=== PATIENT | female | born 1955 | race Caucasian/White ===

== ENCOUNTER 2021-01-10 07:15 | Outpatient (CLI) | payer MEDICARE, OTHER | END 2021-01-10 07:16 | disposition home or self-care (01) | LOC: LAB.S 07:15 | PROVIDERS: ATTEND Registered Nurse | DX: Z13.0 Encounter for screening for diseases of the blood and blood-forming organs and certain disorders involving the immune mechanism (principal); Z13.228 Encounter for screening for other metabolic disorders; Z13.29 Encounter for screening for other suspected endocrine disorder | CPT/HCPCS: 36415; 80053; 80061; 83721; 84443; 85025 ==

== ENCOUNTER 2021-06-20 07:43 | Outpatient (CLI) | payer MEDICARE, OTHER ==
--- NOTE | 2021-06-21 12:14 | Mammography Report ---
BILATERAL DIGITAL SCREENING MAMMOGRAM 3D/2D: 06/20/2021 CLINICAL: Family history of breast cancer. Comparison is made to exams dated: 06/06/2020 mammogram, 06/03/2019 mammogram, 05/28/2018 mammogram, and 05/23/2017 mammogram - [facility]. There are scattered fibroglandular elements in both breasts. No significant masses, calcifications, or other findings are seen in either breast. There has been no significant interval change. IMPRESSION: NEGATIVE There is no mammographic evidence of malignancy. A 1 year screening mammogram is recommended. This exam was interpreted at Station ID: [id number]. NOTE: For mammograms, a report in lay terms will be sent to the patient. Approximately 15% of breast malignancies will not be visualized mammographically. In the management of a palpable breast mass, a negative mammogram must not discourage biopsy of a clinically suspicious lesion. Electronically Signed By: Wyatt Redding M.D. aty/penrad:06/20/2021 08:43:58 ACR BI-RADS Category 1: Negative 3341F PARENCHYMAL PATTERN: (A) - The breast(s) demonstrate(s) scattered fibroglandular densities. BI-RADS CATEGORY: (1) - 1 RECOMMENDATION: (ANNUAL) - Recommend routine annual screening mammography. [id number] 1 year screening LATERALITY: (B)
== END 2021-06-20 07:44 | disposition home or self-care (01) ==
LOC: DI.S 07:43
DX: Z12.31 Encounter for screening mammogram for malignant neoplasm of breast (principal); Z80.3 Family history of malignant neoplasm of breast

== ENCOUNTER 2022-06-21 07:26 | Outpatient (CLI) | payer MEDICARE, OTHER ==
--- NOTE | 2022-06-21 18:37 | Ultrasound Report ---
PROCEDURE: Pelvic w/Transvaginal, ultrasound INDICATIONS: UTERINE FIBROIDS TECHNIQUE: Real-time scanning was performed of the pelvic organs, with image documentation. Additional endovagi nal scanning was necessary due to incomplete visualization of the adnexal and endometrial structures by transabdominal scanning. COMPARISON: None. FINDINGS: Uterus: Uterus is anteverted and normal in size at 7.6 x 5.1 x 5.2 cm. The myometrium is heterogeno us. Several, at least 3 uterine fibroids noted. Largest is in the left anterior subserosal uterus willie suring 3.1 x 2.6 x 4.1 cm. Additional 2.6 x 2.4 cm subserosal fibroid noted adjacent to the cervix, and there is a 2.4 x 2.3 cm subserosal nodule in the right lower uterine segment. The endometrium willie sures 2.1 mm in combined thickness. Ovaries: The right ovary measures 2.4 x 1.5 x 1.0 cm, with a calculated ovarian volume of 9 cc. The left ovary measures 2.3 x 1.0 x 1.1 cm, with a calculated ovarian volume of 1.3 cc. Left ovarian com plex exophytic cyst measures 2.6 x 1.7 x 2.2, and there is a 6 mm mural nodule associated. Less than 12 follicles can be seen in each ovary. No adnexal masses are seen. Other: No pathologic free abdominal or pelvic fluid. IMPRESSION: 1. Complex left ovarian cyst with mural nodule. Consider further evaluation with MRI. 2. Several uterine fibroids present, largest measures 4.1 cm Reviewed by: Sincere Neal MD on 06/21/2022 5:35 PM JOSE Approved by: Sincere Neal MD on 06/21/2022 5:35 PM AKDT Station ID: [id number]
== END 2022-06-21 07:27 | disposition home or self-care (01) ==
LOC: DI 07:26
PROVIDERS: ATTEND Nurse Practitioner
DX: N83.292 Other ovarian cyst, left side (principal); D25.2 Subserosal leiomyoma of uterus

== ENCOUNTER 2022-07-03 07:54 | Outpatient (CLI) | payer MEDICARE, OTHER ==
--- NOTE | 2022-07-05 12:53 | Mammography Report ---
BILATERAL DIGITAL SCREENING MAMMOGRAM 3D/2D: 07/03/2022 CLINICAL: Routine screening. Family history of breast cancer. Comparison is made to exams dated: 06/20/2021 mammogram - [facility], 06/06/2020 [facility], and 06/03/2019 mammogram - [facility]. There are scattered areas of fibroglandular density in both breasts (category b / 25%-50% glandular t issue). There are benign calcifications in both breasts. No significant masses, calcifications, or other findings are seen in either breast. There has been no significant interval change. IMPRESSION: BENIGN There is no mammographic evidence of malignancy. A 1 year screening mammogram is recommended. Based on the Tyrer Cuzick model (a risk assessment model) the patients lifetime risk is 6.2% and her 10 year risk is 3.7%. According to the ACR, ACS, and NCCN guidelines, an annual breast MRI exam isac g with mammogram is recommended if the patients lifetime risk is 20% or greater. This exam was interpreted at Station ID: [id number]. NOTE: For mammograms, a report in lay terms will be sent to the patient. Approximately 15% of breast malignancies will not be visualized mammographically. In the management of a palpable breast mass, a negative mammogram must not discourage biopsy of a clinically suspicious lesion. Electronically Signed By: Wyatt longoria/mahesh:07/04/2022 11:06:01 ACR BI-RADS Category 2: Benign Finding(s) 3342F PARENCHYMAL PATTERN: (A) - The breast(s) demonstrate(s) scattered fibroglandular densities. BI-RADS CATEGORY: (2) - 2 RECOMMENDATION: (ANNUAL) - Recommend routine annual screening mammography. [id number] 1 year screening LATERALITY: (B)
== END 2022-07-03 07:55 | disposition home or self-care (01) ==
LOC: DI.S 07:54
DX: Z12.31 Encounter for screening mammogram for malignant neoplasm of breast (principal); Z80.3 Family history of malignant neoplasm of breast

== ENCOUNTER 2022-07-25 08:39 | Outpatient (CLI) | payer MEDICARE, OTHER ==
[~2022-07-25 08:39] MED LIST: GADOBUTROL 7.5 MMOL/7.5 ML VIAL ONE
[2022-07-25 10:05] LABS: CREATININE 0.8 mg/dL (0.4-1.0)
[2022-07-25] MEDS ORDERED: GADOBUTROL 7.5 MMOL/7.5 ML VIAL IVP ONE (13:21)
--- NOTE | 2022-07-25 13:27 | MRI Report ---
PROCEDURE: Pelvis W/WO INDICATIONS: OVARIAN CYST, ABN US CONTRAST: IV CONTRAST: Gadavist ml: 7.0 TECHNIQUE: Coronal ultra fast SE, sagittal breath-hold T2 FSE; axial T1 FSE with and without fat saturation thro ugh the pelvis. Optional long- and short-axis uterine nonbreath-hold T2 FSE through the uterus. Sag ittal or axial dynamic ultra fast GE during administration of contrast. Post-contrast axial or coron al ultra fast GE / 2-D spoiled GE with fat saturation from the iliac crests to the symphysis. Option al diffusion weighted imaging and ADC may be performed. COMPARISON: Pelvic ultrasound 06/21/2022. FINDINGS: Image quality: Excellent. Uterus: Retroverted uterus. Multiple uterine fibroids (approximately 7). For example: Left fundal exo phytic fibroid measuring 3.2 cm. Fundal intramural measuring 4.1 cm. Endometrium is normal in thickne ss. Junctional zone is normal in thickness at 12 mm or less. Adnexa: Small cyst in the left pelvis measuring 2.1 x 1.7 cm, (). This cyst demonstrates intrins ic T1 hyperintense signal which persists on the fat saturated sequences. No enhancement and T2 isoint ense signal. There appears to be a small mural nodule measuring is 0.4 cm, (7/15). This finding appea rs separate from the left ovary. Small left ovarian follicle, (7/13). Small right ovarian follicle, (7/21). Urinary system: Bladder wall is normal in thickness. Distal ureters are non distended. Urethra luis m ears normal in morphology. Nodes and vessels: No pelvic or inguinal adenopathy by size criteria. Iliac vessels are normal in s ize. Bowel and peritoneum: No pathologic free pelvic fluid. Inferior colon and small bowel loops are nor mal in caliber. Soft tissues: No inguinal hernias. No findings of pelvic floor incompetence in the absence of provo cation. Bones: Marrow demonstrates normal overall signal. Bilateral hip arthroplasties. IMPRESSION: 1. Left posterior pelvis cyst measuring 2.1 cm. Intrinsic T1 hyperintense signal consistent with prot einaceous or hemorrhagic debris. Small mural nodule. No enhancement appreciated. Benign and malignant etiologies remain in the differential diagnosis. Cystadenofibroma could have this appearance. 2. Multiple uterine fibroids. 3. No endometrial thickening. Reviewed by: Lazaro Jorgensen MD on 07/25/2022 1:26 PM PDT Approved by: Lazaro Jorgensen MD on 07/25/2022 1:26 PM PDT Station ID: [id number]
== END 2022-07-25 08:40 | disposition home or self-care (01) ==
LOC: LAB 08:39
PROVIDERS: ATTEND Nurse Practitioner
DX: D25.1 Intramural leiomyoma of uterus (principal); R93.89 Abnormal findings on diagnostic imaging of other specified body structures
CPT/HCPCS: 36415; 72197; 82565; A9585

== ENCOUNTER 2022-08-06 13:06 | Outpatient (CLI) | payer MEDICARE, OTHER | END 2022-08-06 13:07 | disposition home or self-care (01) | LOC: LAB.S 13:06 | PROVIDERS: ATTEND Obstetrics & Gynecology | DX: R19.09 Other intra-abdominal and pelvic swelling, mass and lump (principal) | CPT/HCPCS: 81599 ==

== ENCOUNTER 2022-09-03 08:05 | Outpatient (CLI) | payer MEDICARE, OTHER ==
[2022-09-03 08:26] LABS: BASOPHILS % (AUTO) 0.7 %; EOSINOPHILS # (AUTO) 0.1 10^3/uL (0.0-0.7); EOSINOPHILS % (AUTO) 1.5 %; HCT - HEMATOCRIT 43.1 % (37.0-47.0); HGB - HEMOGLOBIN 13.5 g/dL (12.0-16.0); LYMPHOCYTES # (AUTO) 1.6 10^3/uL (1.5-3.5); LYMPHOCYTES % (AUTO) 25.3 %; MEAN CORPUSCULAR HEMOGLOBIN 29.2 pg (27.0-31.0); MEAN CORPUSCULAR HGB CONC 31.3 g/dL (32.0-36.0); MEAN CORPUSCULAR VOLUME 93.3 fL (81.0-99.0); MEAN PLATELET VOLUME 10.6 fL (7.9-10.8); MONOCYTES # (AUTO) 0.4 10^3/uL (0.0-1.0); NEUTROPHILS % (AUTO) 65.2 %; PLT - PLATELET COUNT 259 10^3/uL (130-450); RED BLOOD COUNT 4.62 10^6/uL (4.20-5.40); RED CELL DISTRIBUTION WIDTH 12.4 % (12.0-15.0); WHITE BLOOD COUNT 6.1 x10^3/uL (4.8-10.8)
== END 2022-09-03 08:06 | disposition home or self-care (01) ==
LOC: LAB 08:05
PROVIDERS: ATTEND Obstetrics & Gynecology
DX: Z01.812 Encounter for preprocedural laboratory examination (principal); R19.09 Other intra-abdominal and pelvic swelling, mass and lump
CPT/HCPCS: 36415; 85025; 86850; 86900; 86901

== ENCOUNTER 2022-09-04 09:11 | Day surgery (SDC) | payer MEDICARE, OTHER ==
[2022-09-04] MEDS ORDERED: LACTATED RINGERS 1,000 ML IV ONE ×2 (10:01→12:22)
--- NOTE | 2022-09-04 10:07 | HISTORY & PHYSICAL EXAMINATION ---
History and Physical - History and Physical HPI: Patient is a 67-year-old postmenopausal female presenting today for laparoscopic bilateral salpingo-oophorectomy and cystectomy. She was seen in the ED several months ago and was diagnosed with diverticulitis, but until he had a suspicious looking cyst on her left adnexa with a nodule. While this did ultimately end up appearing separate from the ovary on MRI, she had a normal CA125 and unremarkable [place]. Due to the mural nodule, we discussed surgical assessment of the cyst. She would also like the ovaries removed as we are performing surgery and [place] in her abdomen anyway. All other symptoms reviewed and were negative except per HPI. PMH Glaucoma Lichen sclerosus Arthritis Varicose veins Uterine fibroids HSV-2 PSH Left and right hip replacement Phlebectomy Diagnostic laparoscopy SH Denies tobacco, alcohol, drugs Family History Mother: Breast cancer, allergies Brother: Diabetes Sister: Allergies Allergies No known drug allergies Medications Estradiol cream Edelmira Prost eyedrops Protopic eyedrops Tacrolimus ointment Physical exam: General: Alert, oriented, no acute distress Head: Normal cephalic atraumatic Eyes: PERRLA, extraocular motions intact. Respiratory: Normal rate of respiration. No accessory muscle use, normal respiratory effort. Cardiovascular: Regular rate and rhythm Abdomen: Nontender, nondistended. Extremities: Normal range of motion, no cords palpated. Good distal pulese. Neuro: Oriented x3. Normal movements Psych: Appropriate mood and affect. Normal judgment and insight Plan 67-year-old postmenopausal female with adnexal cyst 1. Adnexal cyst: -Proceed with diagnostic operative laparoscopy with left adnexal cystectomy as well as bilateral salpingo-oophorectomy. Discussed the risks and benefits with patient regarding surgical risk, bleeding, infection, damage to other organs. Discussed that while this appears benign, final pathology will take proximally 1 week. We will discuss final results at postoperative visit. 2. Uterine fibroids: -Declines hysterectomy -2 to 4 cm in diameter, but not bothering patient.
[2022-09-04] MEDS ORDERED: PROPOFOL 200 MG/20 ML VIAL IVP ONE (10:18)
[2022-09-04] MEDS ORDERED: fentaNYL 100 MCG/2 ML VIAL ONE (10:18)
[2022-09-04] MEDS ORDERED: MIDAZOLAM 2 MG/2 ML VIAL ONE (10:18)
[2022-09-04] MEDS ORDERED: LIDOCAINE-PF 2% 10 ML AMP SUBQ ONE (10:18)
[2022-09-04] MEDS ORDERED: ROCURONIUM 50 MG/5 ML VIAL ONE (10:19)
[2022-09-04] MEDS ORDERED: LIDOCAINE MPF 2%-EPI 1:200000 20 ML VIAL ONE (10:24)
[2022-09-04] MEDS ORDERED: BUPIVACAINE 0.5% PF 30 ML VIAL ONE (10:24)
--- NOTE | 2022-09-04 10:30 | ANESTHESIA ---
Pre-Anesthesia VS, & Labs - Diagnosis ADNEXAL CYST - Procedure LAPAROSCOPIC SALPINGO-OOPHORECTOMY Vital Signs: Temp Pulse Resp BP Pulse Ox O2 Flow Rate 37.1 C 75 18 145/69 H 100 09/04/22 09:26 09/04/22 09:26 09/04/22 09:26 09/04/22 09:26 09/04/22 09:26 Height: 5 ft 6 in Weight (kg): 69 kg Body Mass Index: 24.5 BMI Classification: Normal - NPO >8 hours - Is Patient ?: No Home Medications and Allergies Home Medications: Ambulatory Orders Acetaminophen [Tylenol] 650 mg PO Q6H PRN 08/30/22 Ascorbic Acid [Vitamin C] 500 mg PO DAILY 08/30/22 Cholecalciferol [Vitamin D3] 25 mcg PO DAILY 08/30/22 Latanoprost/Pf [Latanoprost 0.005% Eye Drop] 1 drops EACHEYE QPM 08/30/22 Protopic 0.1% 1 applic TOP PRN PRN 08/30/22 Acetaminophen [Tylenol] 650 mg PO Q6H PRN 08/30/22 Ascorbic Acid [Vitamin C] 500 mg PO DAILY 08/30/22 Cholecalciferol [Vitamin D3] 25 mcg PO DAILY 08/30/22 Latanoprost/Pf [Latanoprost 0.005% Eye Drop] 1 drops EACHEYE QPM 08/30/22 Protopic 0.1% 1 applic TOP PRN PRN 08/30/22 Allergies/Adverse Reactions: Allergies Allergy/AdvReac Type Severity Reaction Status Date / Time Opioids - Morphine Analogues AdvReac Nausea Verified 08/30/22 13:03 Anes History & Medical History - Anesthetic History Anesthesia Complications: reports: Post-Operative Nausea/Vomiting, Opioid sensitivity Family history of Anesthesia Complications: Denies Family history of Malignant Hyperthermia: Denies - Medical History Cardiovascular: reports: None Pulmonary: reports: None Gastrointestinal: reports: Diverticulitis Urinary: reports: None Neuro: reports: None Musculoskeletal: reports: Osteoarthritis Endocrine/Autoimmune: reports: None Skin: reports: Psoriasis Smoking Status: Never smoker Psychosocial: reports: No issues indicated History of Cancer?: No - Surgical History General: reports: Colonoscopy Eyes Ears Nose Throat (EENT): reports: Tonsil/Adenoidectomy Gynecologic: reports: Other Orthopedic: reports: Hip replacement Exam General: Alert, Oriented x3, Cooperative, No acute distress Mouth Openin Fingerbreadth Neck Mobility: Normal Mallampati classification: II Thyromental Distance: 4-6 cm Mental/Cognitive Status: Alert/Oriented X3, Normal for patient Cognitive Status: Within normal limits Plan Anesthesia Type: General Consent for Procedure(s) Verified and Reviewed: Yes Code Status: Attempt Resuscitation ASA classification: 2-Mild systemic disease Is this case an emergency?: No
[2022-09-04] MEDS ORDERED: ePHEDrine 50 MG/ML VIAL IVP ONE (10:54)
[2022-09-04] MEDS ORDERED: LIDOCAINE 2%-EPI 1:100000 20 ML MDV SUBQ ONE ×2 (11:16)
[2022-09-04] MEDS ORDERED: BUPIVACAINE 0.5% PF 30 ML VIAL INFIL ONE ×2 (11:17)
[2022-09-04] MEDS ORDERED: ACETAMINOPHEN 1,000 MG/100 ML 1,000 MG/100 ML BAG IV ONE (11:20)
[2022-09-04] MEDS ORDERED: ONDANSETRON 4 MG/2 ML VIAL ONE ×2 (11:24→12:39)
[2022-09-04] MEDS ORDERED: DEXAMETHASONE 4 MG/ML VIAL ONE (11:24)
[2022-09-04] MEDS ORDERED: NALOXONE 0.4 MG/ML VIAL IVP PRN (12:07)
[2022-09-04] MEDS ORDERED: HYDROmorphone 0.5 MG/0.5 ML SYRINGE IVP PRN (12:07)
[2022-09-04] MEDS ORDERED: ePHEDrine 50 MG/ML VIAL IVP PRN (12:07)
[2022-09-04] MEDS ORDERED: ATROPINE ABBOJECT 1 MG/10 ML SYRINGE IVP PRN (12:07)
[2022-09-04] MEDS ORDERED: ONDANSETRON 4 MG/2 ML VIAL IVP PRN (12:07)
[2022-09-04] MEDS ORDERED: fentaNYL 100 MCG/2 ML VIAL IVP PRN (12:07)
[2022-09-04] MEDS ORDERED: METOCLOPRAMIDE 10 MG/2 ML VIAL IVP PRN (12:07)
[2022-09-04] MEDS ORDERED: KETOROLAC 30 MG/ML VIAL IVP PRN (12:11)
[2022-09-04] MEDS ORDERED: traMADol 50 MG TABLET PO PRN (12:11)
--- NOTE | 2022-09-04 12:21 | OPERATIVE REPORT ---
Operative Report - General Procedure Date: 09/04/22 Planned Procedure: Laparoscopic bilateral salpingo-oophorectomy, left adnexal cystectomy Pre-Op Diagnosis: Left adnexal cyst Procedure Performed: Laparoscopic bilateral salpingo-oophorectomy, left adnexal cystectomy Post Op Diagnosis: Left adnexal cyst - Procedure Note Primary Surgeon: Shmuel Smith MD Secondary Surgeon: Maci Ramires DO, Krista Burckhardt, ARNP Anesthesia Provider: Jonathan Veras CRNA Anesthesia Technique: General ET tube Pathology: Left adnexal cyst, bilateral fallopian tubes and ovaries IV Fluids (mL): 500 Estimated Blood Loss (mL): 20 Urine Output (mL): 100 Complications: None - Other Other Information/Narrative: Prior to surgery, we discussed the risk, benefits, alternatives of surgery, including infection, damage to other organs, bleeding. We discussed damage to other organs including dissecting the cyst off the pelvis. Damage to uterus and surrounding organs. Patient was taken to the OR and placed in the dorsal lithotomy position using Yellofin stirrups after adequate anesthesia was obtained. Patient was prepped and draped in the usual fashion. A bivalve speculum was used to visualize the cervix and a uterine manipulator was placed. 2 mL local anesthesia was used below the umbilicus. An 11 blade scalpel was used to incise the skin. Direct visual entry was used to place the infraumbilical trocar. Upon entering the peritoneal cavity, low flow was used to ensure appropriate positioning. Upon visualization of the abdominal cavity, high flow was then initiated. 2 additional trocars was placed under visualization in a similar fashion in the right and left lower quadrants. Numerous adhesions were seen in the pelvis, lik gala from her diverticulitis. The right lower quadrant adhesions were taken down from the sidewall. Adhesions were also used to separate the bowel from the pelvic organs. The course of the ureters was identified. The left lower quadrant cyst was noted, less than 1 cm from the ovary measuring approximately 1.5 cm. It was dark black to purple, and it appeared hemorrhagic or like an endometrioma. The cyst was from the sidewall using traction and EndoShears. A small am this was removed from the ount of serous fluid leaked from the cyst. This was removed from the pelvis through the port site. After visualization of the left fallopian tube and ovary, it was elevated with a blunt grasper. The IP ligament was grasped with the LigaSure device and was coagulated and cut. This was followed up the mesosalpinx following the tube to the level of the cornua and the tube and ovary were together. Attention was then turned to the right side which was similarly removed. The 5 mm left lower quadrant port was then exchanged for a 11 mm port and Endo Catch bag was placed in the abdomen and removed the 2 remaining specimens. The Suraj-Zelda device was then used with an 0 Vicryl suture to close the 11 mm port site. The abdomen was reviewed for hemostasis, and a healthy-appearing liver was noted. The trocars were then removed, and abdomen was evacuated of gas. The trocar sites were then closed with a 4-0 Monocryl in a sub-cuticular fashion and covered with Dermabond. Patient was taken to the PACU in stable condition. I appreciate the assistance of Maci Ramires DO during this procedure, and the assistance in retraction, visualization, dissection, and overall assistance during the case were instrumental to the patient's wellbeing.
--- NOTE | 2022-09-04 12:41 | ANESTHESIA POST OP EVALUATION ---
Anesthesia Post Eval - Post Anesthesia Eval Vitals: Last Vital Signs Temp 36.5 C 09/04/22 12:37 Pulse 65 09/04/22 12:37 Resp 16 09/04/22 12:37 BP 126/59 L 09/04/22 12:37 Pulse Ox 100 09/04/22 12:37 O2 Flow Rate CV Function Including HR & BP: Stable Pain Control: Satisfactory Nausea & Vomiting: Negative Mental Status: Baseline Respiratory Status: Airway Patent Hydration Status: Satisfactory Anesthesia Complications: None
[2022-09-04] MEDS ORDERED: KETOROLAC 15 MG/ML VIAL ONE (12:51)
[2022-09-04] MEDS ORDERED: LACTATED RINGERS 1,000 ML IV SCH (13:00)
[2022-09-04 14:50] VITALS: BP 114/74
== END 2022-09-04 09:12 | disposition home or self-care (01) ==
LOC: SDS 09:11
PROVIDERS: ATTEND Obstetrics & Gynecology
PROC: 0UT24ZZ Resection of Bilateral Ovaries, Percutaneous Endoscopic Approach (ICD-10-PCS; principal; 2022-09-04 10:30)
PROC: 0UT74ZZ Resection of Bilateral Fallopian Tubes, Percutaneous Endoscopic Approach (ICD-10-PCS; 2022-09-04 10:30)
DX: N83.8 Other noninflammatory disorders of ovary, fallopian tube and broad ligament (principal); D25.9 Leiomyoma of uterus, unspecified; Z78.0 Asymptomatic menopausal state
CPT/HCPCS: 58661; 86900; 86901; J0131; J7120

== ENCOUNTER 2023-05-03 09:32 | Outpatient (CLI) | payer MEDICARE, OTHER ==
--- NOTE | 2023-05-03 12:01 | DEXA Report ---
PROCEDURE: Dexa Spine and/or Hip INDICATIONS: POST MENOPAUSAL TECHNIQUE: Dual energy x-ray absorptiometry (DXA) was performed on a WellFX System. Regions measur ed are the AP Spine, femoral neck, and if needed forearm. COMPARISON: None FINDINGS: Lumbar Spine: Bone Mineral Density 1.223 g/cm/cm,T score 0.4. Normal Left Forearm: Bone Mineral Density 0.715 g/cm/cm, T score -1.8. Osteopenia (T score greater or equal to -1.0: NORMAL) (T score from -1.1 to -2.4: OSTEOPENIA) (T score less than or equal to -2.5 to: OSTEOPOROSIS) Impression: By WHO criteria, this patient has low bone density (osteopenia). Patients with diagnosis of osteoporosis or osteopenia should have regular bone mineral density assess ment. For those eligible for Medicare, routine testing is allowed once every 2 years. Testing frequ ency can be increased for patients who have rapidly progressing disease or for those who are receivin g medical therapy to restore bone mass. Reviewed by: Yasmine Carrington MD on 05/03/2023 10:59 AM JOSE Approved by: Yasmine Carrington MD on 05/03/2023 10:59 AM JOSE Station ID: [id number]
== END 2023-05-03 09:33 | disposition home or self-care (01) ==
LOC: DI 09:32
PROVIDERS: ATTEND Registered Nurse
DX: Z78.0 Asymptomatic menopausal state (principal); M85.88 Other specified disorders of bone density and structure, other site

== ENCOUNTER 2023-07-04 07:22 | Outpatient (CLI) | payer MEDICARE, OTHER ==
--- NOTE | 2023-07-04 11:21 | Mammography Report ---
BILATERAL DIGITAL SCREENING MAMMOGRAM 3D/2D: 07/04/2023 CLINICAL: Routine screening. Family history of breast cancer. Comparison is made to exams dated: 07/03/2022 mammogram, 06/20/2021 mammogram - [facility], 06/06/2020 mammogram, and 06/03/2019 mammogram - [facility]. There are scattered areas of fibroglandular density in both breasts (category b / 25%-50% glandular t issue). There are stable benign calcifications in both breasts. No significant masses, calcifications, or other findings are seen in either breast. There has been no significant interval change. IMPRESSION: BENIGN There is no mammographic evidence of malignancy. A 1 year screening mammogram is recommended. Based on the Tyrer Cuzick model (a risk assessment model) the patients lifetime risk is 5.9% and her 10 year risk is 3.7%. According to the ACR, ACS, and NCCN guidelines, an annual breast MRI exam isac g with mammogram is recommended if the patients lifetime risk is 20% or greater. This exam was interpreted at Station ID: [id number]. NOTE: For mammograms, a report in lay terms will be sent to the patient. Approximately 15% of breast malignancies will not be visualized mammographically. In the management of a palpable breast mass, a negative mammogram must not discourage biopsy of a clinically suspicious lesion. Electronically Signed By: Sj dominguez/mahesh:07/04/2023 10:07:24 letter sent: No_Letter ACR BI-RADS Category 2: Benign Finding(s) 3342F PARENCHYMAL PATTERN: (A) - The breast(s) demonstrate(s) scattered fibroglandular densities. BI-RADS CATEGORY: (2) - 2 Mammogram [id number] 1 year screening LATERALITY: (B)
== END 2023-07-04 07:23 | disposition home or self-care (01) ==
LOC: DI.S 07:22
DX: Z12.31 Encounter for screening mammogram for malignant neoplasm of breast (principal); Z80.3 Family history of malignant neoplasm of breast

== ENCOUNTER 2023-10-08 08:00 | Outpatient (CLI) | payer MEDICARE, OTHER ==
--- NOTE | 2023-10-08 13:23 | XRAY Report ---
PROCEDURE: Knee 4 View RT INDICATIONS: RIGHT KNEE PAIN TECHNIQUE: 4 views of the knee(s) were acquired. COMPARISON: None. FINDINGS: Bones: Mild to moderate degenerative changes, with joint space narrowing more prominent in the latera l compartment. On sunrise view, bone fragment is seen adjacent to the lateral facet. No acute displac ed fracture. No dislocation. Partially seen mild degenerative changes also seen in the left knee. Soft tissues: No suspicious calcifications. Small joint effusion is suspected. IMPRESSION: Mild to moderate degenerative changes, with joint space narrowing more pronounced in the lateral comp artment. Mild degenerative changes also seen in the partially visualized left knee. Small joint effus ion. Age-indeterminate small bone fragment adjacent to the lateral patellar facet. If there is high concern for further derangement, consider MRI evaluation. Reviewed by: Royal Whitmore MD on 10/08/2023 1:21 PM PST Approved by: Royal Whitmore MD on 10/08/2023 1:21 PM PST Station ID: [id number]
== END 2023-10-08 23:59 | disposition home or self-care (01) ==
LOC: DI.WOS 08:00
PROVIDERS: ATTEND Orthopaedic Surgery
DX: M17.11 Unilateral primary osteoarthritis, right knee (principal); M23.41 Loose body in knee, right knee

== ENCOUNTER 2024-07-07 07:49 | Outpatient (CLI) | payer MEDICARE, OTHER ==
--- NOTE | 2024-07-08 15:30 | Mammography Report ---
BILATERAL DIGITAL SCREENING MAMMOGRAM 3D/2D: 07/07/2024 CLINICAL: Routine screening. Family history of breast cancer. Comparison is made to exams dated: 07/04/2023 mammogram, 07/03/2022 mammogram, and 06/20/2021 mammogram - [facility]. There are scattered areas of fibroglandular density (category b / 25%-50% glandular tissue). There are stable benign calcifications in both breasts. No significant masses, calcifications, or other findings are seen in either breast. There has been no significant interval change. IMPRESSION: BENIGN There is no mammographic evidence of malignancy. A 1 year screening mammogram is recommended. Based on the Tyrer Cuzick model (a risk assessment model) the patient's lifetime risk is 5.6% and her 10 year risk is 3.8%. According to the ACR, ACS, and NCCN guidelines, an annual breast MRI exam isac g with mammogram is recommended if the patient's lifetime risk is 20% or greater. This exam was interpreted at Station ID: [id number]. NOTE: For mammograms, a report in lay terms will be sent to the patient. Approximately 15% of breast malignancies will not be visualized mammographically. In the management of a palpable breast mass, a negative mammogram must not discourage biopsy of a clinically suspicious lesion. Electronically Signed By: Valdez nagel/mahesh:07/07/2024 13:03:53 ACR BI-RADS Category 2: Benign 3342F PARENCHYMAL PATTERN: (A) - The breast(s) demonstrate(s) scattered fibroglandular densities. BI-RADS CATEGORY: (2) - 2 RECOMMENDATION: (ANNUAL) - Recommend routine annual screening mammography. [id number] 1 year screening LATERALITY: (B)
== END 2024-07-07 07:50 | disposition home or self-care (01) ==
LOC: DI.S 07:49
DX: Z12.31 Encounter for screening mammogram for malignant neoplasm of breast (principal); Z80.3 Family history of malignant neoplasm of breast